=== PATIENT | male | born 1945 | race Caucasian/White ===

== ENCOUNTER 2018-11-17 13:27 | Emergency (ER) | payer MEDICARE ==
[2018-11-17 14:21] LABS: ABS Basophils 0.1 10^3/ul (0-0.2); ABS Eosinophils 0.2 10^3/ul (0-0.6); ABS Monocytes 0.8 10^3/ul (0-0.8); ABS Neutrophils 3.3 10^3/ul (1.5-7.7); Eosinophil % 2.5 %; Hematocrit 44 % (42-52); Hemoglobin 14.9 g/dL (14.0-18.0); Mean Corpuscular HGB Conc 34 g/dL (31-36); Mean Corpuscular Hemoglobin 31 pg (27-31); Mean Corpuscular Volume 93 fL (80-94); Platelet Count 243 10^3/uL (150-450); Red Blood Count 4.75 10^6 /uL (4.18-5.48); Red Cell Distribution Width 13 % (10-15); White Blood Count 7.3 10^3/uL (3.5-10.8)
[2018-11-17 14:24] LABS: INR 0.96 (0.82-1.09)
[2018-11-17 14:38] LABS: Albumin/Globulin Ratio 1.5 (1-3); BUN/Creatinine Ratio 22.4 (8-20); Calcium 9.1 mg/dL (8.6-10.3); EGFR African American 141.1 (>60); EGFR Non-African American 116.6 (>60); Globulin 2.7 g/dL (2-4); Potassium 3.8 mmol/L (3.5-5.0); Total Bilirubin 0.6 mg/dL (0.2-1.0); Total Protein 6.7 g/dL (6.4-8.9)
--- NOTE | 2018-11-17 14:47 | ED ---
Palpitations / Dysrhythmia - HPI Summary HPI Summary: The pt is a 73 y/o M who is presenting to [facility] with his and a CC of palpitations. Yesterday afternoon the pt went out for dinner and the returned home and sat on the couch. He states that he became fatigued at 0700 with a chest heaviness and attempted to fall asleep at 0900 but couldnt. He states that he felt palpitations in his chest and stated that he could hear an irregular pulse that would stop and then continue. He states that he was very anxious but could not sleep. The discomfort in his chest has decreased. He notes no known aggravating or alleviating factors. He denies feeling SOB, lightheaded, dizzy, N/V/D, abdominal pain, fever, chill, diaphoresis, and coughs. He states that around 10 days ago on 11/07/18 the pt reports becoming sick with a stomach bug and had vomiting and diarrhea. He has a PMHx of peripheral neuropathy and spinal stenosis. - History of Current Complaint Chief Complaint: EDDysrhythmPalp Time Seen by Provider: 11/17/18 14:34 Hx Obtained From: Patient Onset/Duration: Sudden Onset - 1900 yesterday, Still Present - states that its less severe Timing: Constant Severity Initially: Moderate Severity Currently: Mild Character: Pounding, Skipped Beats Aggravating: Nothing Alleviating: Nothing Associated Signs & Symptoms: Negative - SOB, lightheaded, dizzy, N/V/D, abdominal pain, fever, chill, diaphoresis, and coughs, Chest Pain - described as heaviness - Allergy/Home Medications Allergies/Adverse Reactions: Allergies Allergy/AdvReac Type Severity Reaction Status Date / Time No Known Allergies Allergy Verified 11/17/18 13:37 Home Medications: Home Medications Ibuprofen TAB* [Advil TAB*] 200 mg PO Q6H PRN 11/17/18 [History Confirmed ] Propranolol HCl 10 - 20 mg PO TID 11/17/18 [History Confirmed 11/17/18] PMH/Surg Hx/FS Hx/Imm Hx Previously Healthy: No Endocrine/Hematology History: Reports: Hx Thyroid Disease Denies: Hx Diabetes Cardiovascular History: Denies: Hx Hypertension, Hx Pacemaker/ICD, Other Cardiovascular Problems/ Disorders Respiratory History: Denies: Hx Asthma GI History: Reports: Hx Gastroesophageal Reflux Disease - TAKING FAMOTIDINE BECAUSE OF TAKING GABAPENTIN, Other GI Disorders - RIGHT INGUINAL HERNIA- SEEING SURGEON History: Denies: Hx Renal Disease Musculoskeletal History: Reports: Hx Arthritis - HANDS, ELBOWS, Hx Back Problems Denies: Other Musculoskeletal History Sensory History: Reports: Hx Cataracts, Hx Contacts or Glasses Denies: Hx Hearing Aid Opthamlomology History: Reports: Hx Cataracts, Hx Contacts or Glasses Neurological History: Denies: Other Neuro Impairments/Disorders Psychiatric History: Denies: Hx Panic Disorder - Surgical History Surgery Procedure, Year, and Place: COLONOSCOPY (NO POLYPS) ;. HERNIA REPAIR ( RIGHT SIDE) ;. SKIN LESIONS REMOVED (NECK) ;. LEFT EYE CATARACT ; Hx Anesthesia Reactions: No Infectious Disease History: No Infectious Disease History: Denies: Traveled Outside the [place] in Last 30 Days - Family History Known Family History: Positive: Other - pancreatic cancer Negative: Cardiac Disease, Hypertension - Social History Occupation: Retired Lives: With Family Alcohol Use: Daily Alcohol Amount: 1-2 BEERS DAILY; OCCAS. WHISKEY Hx Substance Use: Yes Substance Use Type: Reports: Marijuana Substance Use Comment - Amount & Last Used: 1-2 TIMES WEEKLY Hx Tobacco Use: No Smoking Status (MU): Never Smoked Tobacco Have You Smoked in the Last Year: No Review of Systems Negative: Fever, Chills, Skin Diaphoresis Positive: Chest Pain - heaviness Negative: Shortness Of Breath, Cough Negative: Abdominal Pain, Vomiting, Diarrhea, Nausea Negative: Headache All Other Systems Reviewed And Are Negative: Yes Physical Exam - Summary Physical Exam Summary: Appearance: Well-appearing, Well-nourished, lying in bed comfortably Skin: Warm, dry, no obvious rash Eyes: sclera anicteric, no conjunctival pallor ENT: mucous membranes moist, pharynx appears normal Neck: Supple, nontender Respiratory: Clear to auscultation, no signs of respiratory distress Cardiovascular: Normal S1, S2. No murmurs. Occasional PVCs and PACs, pulse is good. Abdomen: Soft, nontender, normal active bowel sounds present Musculoskeletal: Normal, Strength/ROM Intact Neurological: A&Ox3, awake and alert, mentation is normal, speech is fluent and appropriate Psychiatric: affect is normal, does not appear anxious or depressed Triage Information Reviewed: Yes Vital Signs On Initial Exam: Initial Vitals Temp Pulse Resp BP Pulse Ox 97.6 F 68 17 161/92 97 11/17/18 13:28 11/17/18 13:28 11/17/18 13:28 11/17/18 13:28 11/17/18 13:28 Vital Signs Reviewed: Yes Diagnostics - Vital Signs Vital Signs Temp Pulse Resp BP Pulse Ox 11/17/18 13:28 97.6 F 68 17 161/92 97 - Laboratory Lab Results: Lab Results 11/17/18 11/17/18 11/17/18 Range/Units 14:05 14:05 14:05 WBC 7.3 (3.5-10.8) 10^3/uL RBC 4.75 (4.18-5.48) 10^6 /uL Hgb 14.9 (14.0-18.0) g/dL Hct 44 (42-52) % MCV 93 (80-94) fL MCH 31 (27-31) pg MCHC 34 (31-36) g/dL RDW 13 (10-15) % Plt Count 243 (150-450) 10^3/uL MPV 8.0 (7.4-10.4) fL Neut % (Auto) 44.7 % Lymph % (Auto) 41.0 % [place] % (Auto) 10.3 % Eos % (Auto) 2.5 % Baso % (Auto) 1.5 % Absolute Neuts (auto) 3.3 (1.5-7.7) 10^3/ul Absolute Lymphs (auto) 3.0 (1.0-4.8) 10^3/ul Absolute Monos (auto) 0.8 (0-0.8) 10^3/ul Absolute Eos (auto) 0.2 (0-0.6) 10^3/ul Absolute Basos (auto) 0.1 (0-0.2) 10^3/ul Absolute Nucleated RBC 0.0 10^3/ul Nucleated RBC % 0.0 INR (Anticoag Therapy) 0.96 (0.82-1.09) Sodium 141 (135-145) mmol/L Potassium 3.8 (3.5-5.0) mmol/L Chloride 109 (101-111) mmol/L Carbon Dioxide 25 (22-32) mmol/L Anion Gap 7 (2-11) mmol/L BUN 15 (6-24) mg/dL Creatinine 0.67 (0.67-1.17) mg/dL Est GFR ( Amer) 141.1 (>60) Est GFR (Non-Af Amer) 116.6 (>60) BUN/Creatinine Ratio 22.4 H (8-20) Glucose 118 H (70-100) mg/dL Calcium 9.1 (8.6-10.3) mg/dL Total Bilirubin 0.60 (0.2-1.0) mg/dL AST 21 (13-39) U/L ALT 22 (7-52) U/L Alkaline Phosphatase 81 (34-104) U/L Troponin I 0.00 (<0.04) ng/mL Total Protein 6.7 (6.4-8.9) g/dL Albumin 4.0 (3.2-5.2) g/dL Globulin 2.7 (2-4) g/dL Albumin/Globulin Ratio 1.5 (1-3) Result Diagrams: 11/17/18 14:05 11/17/18 14:05 Lab Statement: Any lab studies that have been ordered have been reviewed, and results considered in the medical decision making process. - EKG 1336 Cardiac Rate: NL - 54 BPM EKG Rhythm: Sinus Rhythm Ectopy: PVCs, PACs Summary of EKG Findings: NSR at 54 BPM with multiple PVCs and PACs and a nonspecific intraventricular conduction delay. The pt has no STEMI. Interpreted by Dr. Unger at 1339 11/17/18. Re-Evaluation - Re-Evaluation First Eval Re-Evaluation Time: 14:49 Change: Improved Comment: The pt was informed of his lab results and EKG findings and is agreeable to the discharge plan. Course/Dx - Course Course Of Treatment: The pt is a 73 y/o M who is presenting to [facility] with his and a CC of palpitations. Yesterday afternoon the pt went out for dinner and the returned home and sat on the couch. He states that he became fatigued at 0700 with a chest heaviness and attempted to fall asleep at 0900 but couldn t. He states that he felt palpitations in his chest and stated that he could hear an irregular pulse that would stop and then continue. He states that he was very anxious but could not sleep. His PE found that he has occasional PVCs and PACs but his pulse is good. The rest of his PE was unremarkable. He received an EKG at 1336 which shows a NSR at 54 BPM with multiple PVCs and PACs and a nonspecific intraventricular conduction delay. The pt has no STEMI. The pt will be discharged home with a Dx of PVCs, PACs, and CP due to his normal lab values, specifically his normal Troponin level which does not make him a canidate for a heart attack. - Diagnoses Provider Diagnoses: PVCs (premature ventricular contractions), PAC (premature atrial contraction), Chest pain Discharge - Sign-Out/Discharge Documenting (check all that apply): Patient Departure - discharge Patient Received Moderate/Deep Sedation with Procedure: No - Discharge Plan Condition: Stable Disposition: HOME Patient Education Materials: Chest Pain (ED), Heart Palpitations (ED) Referrals: Darnell Mendiola MD [Primary Care Provider] - Additional Instructions: The EKG and blood work effectively ruled out a heart attack as a cause of your symptoms, so we feel you are at low risk of having a heart condition. I would recommend followup with Dr. Mendiola as he may wish to order a stress test on you to further assess your heart. - Billing Disposition and Condition Condition: STABLE Disposition: Home - Attestation Statements Document Initiated by Sherine: Yes Documenting Scribe: Juan Antonio Leahy Provider For Whom Sherine is Documenting (Include Credential): Trever Wallace MD Scribe Attestation: IJuan Antonio, scribed for Trever Wallace MD on 11/19/18 at 0429. Scribe Documentation Reviewed: Yes Provider Attestation: The documentation as recorded by the Juan Antonio hernandez accurately reflects the service I personally performed and the decisions made by me, Trever Wallace MD Status of Scribe Document: Viewed
[2018-11-17 14:49] VITALS: BP 154/98
== END 2018-11-17 15:28 | disposition home or self-care (01) ==
LOC: ED 13:27
DX: I49.3 Ventricular premature depolarization (principal); I49.1 Atrial premature depolarization; R07.9 Chest pain, unspecified; K21.9 Gastro-esophageal reflux disease without esophagitis; E07.9 Disorder of thyroid, unspecified; G62.9 Polyneuropathy, unspecified
CPT/HCPCS: 36415; 80053; 84484; 85025; 85610; 93005; 99283